=== PATIENT | female | born 1945 | race Two or more races ===

== ENCOUNTER 2020-10-11 15:54 | Inpatient (IN) | payer OTHER ==
[~2020-10-11] VITALS: Ht 160 cm; Wt 72.6 kg
--- NOTE | 2020-10-11 16:15 | NUR ---
PTE ALERTA Y ORIENTADA POR LINDSEY ESFERAS LLEGA POR AMBULANCIA EN ROSEMARY. TIENE CANALIZAICON EN MANO IZQUIERDA. KERRY REFIERE QUE TIENE MOLESTIA EN EL PECHO Y DIFICULTAD AL RESPIRAR. SE MUESTRA A MEDICO DE TURNO Y REFIERE UBICARLO EN ROSEMARY 13.
--- NOTE | 2020-10-11 16:23 | NUR ---
SE ORIENTA A PACIENTE SOBRE ORDENES MEDICAS, JENISE RENEE REALIZA EKG A PACIENTE Y SE LE ENTREGA A DRA. WHEELER. PENDIENTE CONSULTA CON DR. CYNTHIA CASTILLO. SE MANTIENE PTE EN OBSERVACION.
[2020-10-12] MEDS ORDERED: ATENOLOL25 MG (11:12)
[2020-10-12] MEDS ORDERED: ADULT ASPIRIN81 MG (11:12)
[2020-10-16] MEDS ORDERED: ATENOLOL50 MG PO (11:47)
[2020-10-16] MEDS ORDERED: LOSARTAN POTASS25 MG PO (11:48)
[2020-10-16] MEDS ORDERED: XOPENEX HFA15 GM IH (11:50)
[2020-10-23] MEDS ORDERED: TENORMIN25 MG PO (14:27)
[2020-10-23] MEDS ORDERED: COZAAR25 MG PO (14:28)
== END 2020-10-16 12:37 | disposition home or self-care (01) | DRG 181 ==
LOC: ER 15:54 → ICU-2 17:23 → MEDI 17:23 → SURH 17:23 → ICU-2 18:30 → MEDI 10-12 10:54
PROVIDERS: ADMIT Internal Medicine; ATTEND Internal Medicine
PROC: B24BZZZ Ultrasonography of Heart with Aorta (ICD-10-PCS; 2020-10-11)
PROC: BW2FZZZ Computerized Tomography (CT Scan) of Neck (ICD-10-PCS; 2020-10-11)
PROC: CW1NYZZ Planar Nuclear Medicine Imaging of Whole Body using Other Radionuclide (ICD-10-PCS; principal; 2020-10-12)
PROC: 3E0F7SF Introduction of Other Gas into Respiratory Tract, Via Natural or Artificial Opening (ICD-10-PCS; 2020-10-12)
PROC: 4A12X4Z Monitoring of Cardiac Electrical Activity, External Approach (ICD-10-PCS; 2020-10-12)
PROC: 4A033R1 Measurement of Arterial Saturation, Peripheral, Percutaneous Approach (ICD-10-PCS; 2020-10-16)
DX: C34.11 Malignant neoplasm of upper lobe, right bronchus or lung (principal); J90 Pleural effusion, not elsewhere classified; I31.3 Pericardial effusion (noninflammatory); R07.89 Other chest pain; R91.8 Other nonspecific abnormal finding of lung field; I10 Essential (primary) hypertension
CPT/HCPCS: 71275

== ENCOUNTER 2020-10-22 08:43 | Outpatient (CLI) | payer OTHER ==
[~2020-10-22 08:43] MED LIST: ADULT ASPIRIN81 MG; ATENOLOL25 MG; ATENOLOL50 MG PO; LOSARTAN POTASS25 MG PO; XOPENEX HFA15 GM IH
[2020-10-23] MEDS ORDERED: TENORMIN25 MG PO (14:27)
[2020-10-23] MEDS ORDERED: COZAAR25 MG PO (14:28)
== END 2020-10-22 08:44 | disposition home or self-care (01) ==
LOC: NUCLEAR 08:43
PROVIDERS: ATTEND Internal Medicine
DX: C34.91 Malignant neoplasm of unspecified part of right bronchus or lung (principal); R91.8 Other nonspecific abnormal finding of lung field; D38.1 Neoplasm of uncertain behavior of trachea, bronchus and lung
CPT/HCPCS: 78816; A9552

== ENCOUNTER 2020-10-27 05:20 | Day surgery (SDC) | payer OTHER ==
[~2020-10-27 05:20] MED LIST changes: +COZAAR25 MG PO; +TENORMIN25 MG PO
== END 2020-10-27 11:50 | disposition home or self-care (01) ==
LOC: CIR.AMB 05:20
PROVIDERS: ATTEND Specialist
DX: C34.11 Malignant neoplasm of upper lobe, right bronchus or lung (principal); Z20.822 Contact with and (suspected) exposure to COVID-19
CPT/HCPCS: 36561; C1751

== ENCOUNTER 2020-11-12 20:12 | Inpatient (IN) | payer OTHER ==
[~2020-11-12] VITALS: Ht 167.6 cm; Wt 68.0 kg
[2020-11-13] MEDS ORDERED: TRIPLE ANTIBI28.4 G2 (16:44)
[2020-11-13] MEDS ORDERED: LOSARTAN POTASS25 MG (16:44)
[2020-11-13] MEDS ORDERED: FUROSEMIDE20 MG (16:44)
[2020-11-13] MEDS ORDERED: PANTOPRAZOLE SO40 MG (16:44)
[2020-11-13] MEDS ORDERED: ALLERGY RELIE15.8 ML (16:44)
[2020-11-13] MEDS ORDERED: MONTELUKAST SODI4 MG (16:44)
[2020-11-19] MEDS ORDERED: ATENOLOL25 MG PO (10:33)
[2020-11-19] MEDS ORDERED: FOLIC ACID0.8 M1 PO (10:36)
[2020-11-19] MEDS ORDERED: B COMPLEX1 EACH PO (10:36)
== END 2020-11-19 14:35 | disposition home or self-care (01) | DRG 181 ==
LOC: ER 20:12 → SURH 22:17
PROVIDERS: ADMIT Internal Medicine; ATTEND Internal Medicine
PROC: 4A033R1 Measurement of Arterial Saturation, Peripheral, Percutaneous Approach (ICD-10-PCS; 2020-11-13)
PROC: 3E0F7SF Introduction of Other Gas into Respiratory Tract, Via Natural or Artificial Opening (ICD-10-PCS; 2020-11-13)
PROC: 0W993ZZ Drainage of Right Pleural Cavity, Percutaneous Approach (ICD-10-PCS; principal; 2020-11-14)
PROC: 4A12X4Z Monitoring of Cardiac Electrical Activity, External Approach (ICD-10-PCS; 2020-11-14)
DX: C34.91 Malignant neoplasm of unspecified part of right bronchus or lung (principal); J91.8 Pleural effusion in other conditions classified elsewhere; J44.1 Chronic obstructive pulmonary disease with (acute) exacerbation; Z20.822 Contact with and (suspected) exposure to COVID-19

== ENCOUNTER 2020-12-14 15:54 | Outpatient (CLI) | payer OTHER ==
[~2020-12-14 15:54] MED LIST changes: +ALLERGY RELIE15.8 ML; +ATENOLOL25 MG PO; +B COMPLEX1 EACH PO; +FOLIC ACID0.8 M1 PO; +FUROSEMIDE20 MG; +LOSARTAN POTASS25 MG; +MONTELUKAST SODI4 MG; +PANTOPRAZOLE SO40 MG; +TRIPLE ANTIBI28.4 G2
== END 2020-12-14 15:59 | disposition home or self-care (01) ==
LOC: RAD 15:54
PROVIDERS: ATTEND Internal Medicine
DX: J90 Pleural effusion, not elsewhere classified (principal); J44.1 Chronic obstructive pulmonary disease with (acute) exacerbation; C34.11 Malignant neoplasm of upper lobe, right bronchus or lung

== ENCOUNTER 2021-01-03 13:34 | Inpatient (IN) | payer OTHER ==
[~2021-01-03] VITALS: Ht 160 cm; Wt 59.0 kg
--- NOTE | 2021-01-03 13:58 | NUR ---
PTE ALERTA Y ORIENTADA EN SAGAR LINDSEY ESFERAS, LLEGA EN AMBULANCIA POR SINCOPE EN EL JESÚS DE HOY. PTE CON ACCESO VENOSOS EN AREA DE PECHO LADO LT PARA QUIMIOTERAPIAS. PTE DEPENDIENTE DE OXIGENO SE REALIZA EKG Y SE PRESENTA A DR PORTER. UBICADA EN AREA DE OBSERVACION.
--- NOTE | 2021-01-03 15:34 | NUR ---
A EVALUA PTE. SE EDUCA A PTE SOBRE TX MEDICO. PTE REFIERE COMPRENDER. SE REALIZAN MUESTRAS DE LABORATORIO BAJO MEDIDAS ASEPTICAS. SE ADMINISTRA IV'S ILIANA ORDEN MEDICA. SE NOTIFICA CT. PTE MANEJADA POR .
--- NOTE | 2021-01-03 23:00 | NUR ---
SE RECIBE PTE ALERTA Y ORIENTADA X 3 ESFERAS EN CAMA CON BARANDAS ELEVADAS POR SEGURIDAD EN LA UNIDAD DE AISLAMIENTO. RECIBIENDO IV'S 0.9NSS + MVI BAJANDO A 125ML/HR AREA DE VENOPUNCION OSCAR DE EDEMA Y ERITEMA. PENDIENTE MUESTRAS DE LABORATORIO PARA MANANA EN LA MANANA. PENDIENTE RE-EVALUACION MEDICA MANANA. SE MANTIENE EN OBSERVACION POR CAMBIOS.
--- NOTE | 2021-01-04 07:29 | NUR ---
SE RECIBE PTE EN EL AREA DE OBSERVACION EN EL CUBICULO 14 EN CAMA CON BARANDAS ELEVADA Y TIMBRE ACCESIBLE PTE ALERTA Y ORIETNADO POR 3 SE OBSERVA VENOPUNCION PATENTE Y OSCAR DE EDEMA PTE SE MANTIENE EN OBSERVACION Y BAJO TRATAMIENTO EN ESPERA DEL DR SARABJIT KNIGHT.
[2021-01-29] MEDS ORDERED: GABAPENTIN300 MG PO (12:27)
[2021-01-29] MEDS ORDERED: XOPENEX0.63 MG/3 IH (12:27)
[2021-01-29] MEDS ORDERED: SERTRALINE HCL50 MG PO (12:27)
[2021-01-29] MEDS ORDERED: DILTIAZEM ER120 M2 PO (12:27)
[2021-01-29] MEDS ORDERED: CARAFATE1 GM PO (12:28)
[2021-01-29] MEDS ORDERED: PANTOPRAZOLE SO40 MG PO (12:28)
[2021-01-29] MEDS ORDERED: FOLIC ACID0.8 M1 PO (12:29)
[2021-01-29] MEDS ORDERED: B COMPLEX1 EACH PO (12:29)
[2021-01-29] MEDS ORDERED: PROTEINEX-18 LI30 ML PO (12:29)
== END 2021-01-29 14:56 | disposition home or self-care (01) | DRG 641 ==
LOC: ER 13:34 → MEDJ 01-04 13:17 → SEC-K 01-04 13:17 → MEDJ 01-04 14:29
PROVIDERS: ADMIT Internal Medicine; ATTEND Internal Medicine
PROC: 8E0ZXY6 Isolation (ICD-10-PCS; 2021-01-04)
PROC: 4A12X4Z Monitoring of Cardiac Electrical Activity, External Approach (ICD-10-PCS; 2021-01-05)
PROC: 0DB68ZX Excision of Stomach, Via Natural or Artificial Opening Endoscopic, Diagnostic (ICD-10-PCS; principal; 2021-01-07)
PROC: 30233N1 Transfusion of Nonautologous Red Blood Cells into Peripheral Vein, Percutaneous Approach (ICD-10-PCS; 2021-01-07)
PROC: 3E0F7SF Introduction of Other Gas into Respiratory Tract, Via Natural or Artificial Opening (ICD-10-PCS; 2021-01-07)
PROC: 0W9930Z Drainage of Right Pleural Cavity with Drainage Device, Percutaneous Approach (ICD-10-PCS; 2021-01-08)
DX: E86.0 Dehydration (principal); C34.11 Malignant neoplasm of upper lobe, right bronchus or lung; E46 Unspecified protein-calorie malnutrition; B37.0 Candidal stomatitis; N17.8 Other acute kidney failure; J91.0 Malignant pleural effusion; T45.1X5A Adverse effect of antineoplastic and immunosuppressive drugs, initial encounter; E87.6 Hypokalemia; D63.0 Anemia in neoplastic disease; R13.14 Dysphagia, pharyngoesophageal phase; D69.59 Other secondary thrombocytopenia; F43.21 Adjustment disorder with depressed mood; K29.00 Acute gastritis without bleeding

== ENCOUNTER 2021-02-09 14:20 | Inpatient (IN) | payer OTHER ==
[~2021-02-09] VITALS: Ht 160 cm; Wt 59.0 kg
[~2021-02-09 14:20] MED LIST changes: +CARAFATE1 GM PO; +DILTIAZEM ER120 M2 PO; +GABAPENTIN300 MG PO; +PANTOPRAZOLE SO40 MG PO; +PROTEINEX-18 LI30 ML PO; +SERTRALINE HCL50 MG PO; +XOPENEX0.63 MG/3 IH
--- NOTE | 2021-02-09 14:23 | NUR ---
SE RECIBE PTE EN AMBULANCIA ALERTA Y ORIENTADA X3,REFIERE TENR UN TUBO DE PECHO ,REFIERE ESTAR FALAT DE OXIGENACION ,ES PTE DEL ANGELINA MARIE,SE LE LUCERO S/V SE ACOMODA ROSEMARY 10 CON BARANDAS ELEVADAS.
--- NOTE | 2021-02-09 15:29 | NUR ---
SE ORIENTA AL PACIENTE SOBRE EL TX. SE EXTRAEN MUESTRAS DE VASU BAJO MEDIDAS ASEPTICAS SE ROTULAN Y ENVIAN AL LABORATORIO.
--- NOTE | 2021-02-09 16:41 | NUR ---
SE CANALIZA PACIENTE Y SE ADMINISTRAN MEDICAMENTOS ILIANA ORDEN MEDICA
== END 2021-03-03 09:54 | disposition expired | DRG 920 ==
LOC: ER 14:20 → SEC-K 18:33 → MEDJ 02-10 10:59
PROVIDERS: ADMIT Internal Medicine; ATTEND Internal Medicine
PROC: 0W9930Z Drainage of Right Pleural Cavity with Drainage Device, Percutaneous Approach (ICD-10-PCS; principal; 2021-02-10)
PROC: 0WP930Z Removal of Drainage Device from Right Pleural Cavity, Percutaneous Approach (ICD-10-PCS; 2021-02-10)
PROC: 0W9D30Z Drainage of Pericardial Cavity with Drainage Device, Percutaneous Approach (ICD-10-PCS; 2021-02-10)
PROC: 8E0ZXY6 Isolation (ICD-10-PCS; 2021-02-10)
PROC: 4A033R1 Measurement of Arterial Saturation, Peripheral, Percutaneous Approach (ICD-10-PCS; 2021-02-10)
PROC: 3E0L3GC Introduction of Other Therapeutic Substance into Pleural Cavity, Percutaneous Approach (ICD-10-PCS; 2021-02-16)
PROC: 0W993ZX Drainage of Right Pleural Cavity, Percutaneous Approach, Diagnostic (ICD-10-PCS; 2021-02-17)
PROC: 0WP930Z Removal of Drainage Device from Right Pleural Cavity, Percutaneous Approach (ICD-10-PCS; 2021-02-22)
DX: T85.618A Breakdown (mechanical) of other specified internal prosthetic devices, implants and grafts, initial encounter (principal); I48.20 Chronic atrial fibrillation, unspecified; J90 Pleural effusion, not elsewhere classified; C34.11 Malignant neoplasm of upper lobe, right bronchus or lung; E46 Unspecified protein-calorie malnutrition; N17.8 Other acute kidney failure; N39.0 Urinary tract infection, site not specified; E87.0 Hyperosmolality and hypernatremia; I31.3 Pericardial effusion (noninflammatory); Y84.8 Other medical procedures as the cause of abnormal reaction of the patient, or of later complication, without mention of misadventure at the time of the procedure; E86.0 Dehydration; Z79.01 Long term (current) use of anticoagulants; D69.49 Other primary thrombocytopenia; N18.31 Chronic kidney disease, stage 3a; I13.10 Hypertensive heart and chronic kidney disease without heart failure, with stage 1 through stage 4 chronic kidney disease, or unspecified chronic kidney disease; B96.5 Pseudomonas (aeruginosa) (mallei) (pseudomallei) as the cause of diseases classified elsewhere; F43.21 Adjustment disorder with depressed mood; R13.14 Dysphagia, pharyngoesophageal phase; Z66 Do not resuscitate